=== PATIENT | female | born 1975 | race Caucasian/White ===

== ENCOUNTER 2020-01-29 15:08 | Emergency (ER) | payer MEDICAID ==
[~2020-01-29] VITALS: Ht 172.7 cm; Wt 47.6 kg
--- NOTE | 2020-01-29 15:13 | Emergency Room Report ---
History of Present Illness General Chief Complaint: Abdominal Pain Source: Patient Present Illness HPI 44-year-old female with history of alcohol abuse brought in by paramedics from streets due to multiple bouts of nonbloody emesis that started this morning. Patient also complains of epigastric abdominal pain. Complains of few bouts of nonbloody diarrhea. Denies chest pain, congestion, shortness of breath, fever and chills. Patient reports that she has been coughing for several years and there has been no changes to her cough. Denies urinary symptoms. Denies tobacco use, drug use, however reports that she drinks alcohol frequently. Reports that her symptoms started after she had a lot of alcohol at her friend's birthday alliance party. Patient appears to be stable with stable vital signs. Denies . Allergies: Coded Allergies: AZITHROMYCIN (Verified Allergy, Unknown, 01/29/20) ERYTHROMYCIN BASE (Verified Allergy, Unknown, 01/29/20) COVID-19 Screening Contact w/high risk pt: No Experienced COVID-19 symptoms?: No COVID-19 Testing performed [employer]: No Patient History Past Medical History: see triage record Past Surgical History: none Pertinent Family History: none Now: No Immunizations: UTD Reviewed Nursing Documentation: PMH: Agreed; PSxH: Agreed Nursing Documentation-PMH Past Medical History: No Stated History Review of Systems All Other Systems: negative except mentioned in HPI Physical Exam Vital Signs Date Time Temp Pulse Resp B/P (MAP) Pulse Ox O2 Delivery O2 Flow Rate FiO2 01/29/20 15:02 99.1 87 18 144/92 (109) 98 Room Air Sp02 EP Interpretation: reviewed, normal General Appearance: no apparent distress, alert, GCS 15, non-toxic Head: normocephalic, atraumatic Eyes: bilateral eye normal inspection, bilateral eye PERRL ENT: hearing grossly normal, normal pharynx, no angioedema, normal voice Neck: full range of motion, supple/symm/no masses Respiratory: chest non-tender, lungs clear, normal breath sounds, speaking full sentences Cardiovascular #1: regular rate, rhythm, no edema Cardiovascular #2: 2+ carotid (R), 2+ carotid (L), 2+ radial (R), 2+ radial (L), 2+ dorsalis pedis (R), 2+ dorsalis pedis (L) Gastrointestinal: normal bowel sounds, non tender, soft, no peritonitis, no bruit, non-distended, no guarding, no hernia, no pulsatile mass, no rebound Genitourinary: no CVA tenderness Musculoskeletal: back normal Neurologic: alert, motor strength/tone normal, oriented x3, sensory intact, responsive, speech normal Psychiatric: judgement/insight normal, memory normal, mood/affect normal, no suicidal/homicidal ideation Skin: no rash Lymphatic: no adenopathy Medical Decision Making PA Attestation All diagnoses and treatment plans were reviewed and discussed with my supervising physician Dr. Robertson Homeless Attestation The treating physician has assessed and agrees that patient is medically stable for outpatient disposition Diagnostic Impression: Primary Impression: Fatty liver Additional Impressions: UTI (urinary tract infection) Nausea & vomiting ER Course 44-year-old female with history of alcohol abuse brought in by paramedics from streets due to multiple bouts of nonbloody emesis that started this morning. Patient also complains of epigastric abdominal pain. Complains of few bouts of nonbloody diarrhea. Denies chest pain, congestion, shortness of breath, fever and chills. Patient reports that she has been coughing for several years and there has been no changes to her cough. Denies urinary symptoms. Denies tobacco use, drug use, however reports that she drinks alcohol frequently. Reports that her symptoms started after she had a lot of alcohol at her friend's birthday alliance party. Patient appears to be stable with stable vital signs. Denies . Ddx considered but are not limited to: appendicitis, cholecystis, gastritis, gastroenteritis, UTI, pyelonephritis, SBO, diverticulitis, pancreatitis Vital signs: are WNL, pt. is afebrile H&PE are most consistent with: Fatty liver, UTI, nausea vomiting most likely secondary to cannabis use ORDERS: abdominal CT, abdominal pain set, EKG, Zofran, Pepcid, dicyclomine, Keflex ED INTERVENTIONS: NS bolus, Zofran, Pepcid, Toradol DISCHARGE: At this time pt. is stable for d/c to home. Will provide printed patient care instructions, and any necessary prescriptions. Care plan and follow up instructions have been discussed with the patient prior to discharge. Advised patient to increase oral hydration, avoid cannabis use and alcohol intake, take medication as directed, keep a brat diet, if worsening symptoms return to the emergency room EKG Diagnostic Results Rate: tachycardiac Rhythm: other - slightly tachy ST Segments: no acute changes Other Impression No acute ST changes ASA given to the pt in ED: No Chest X-Ray Diagnostic Results Chest X-Ray Diagnostic Results : Chest X-Ray Ordered: Yes # of Views/Limited/Complete: 1 View Indication: Other EP Interpretation: Yes PA Xray: Interpretation reviewed, by supervising MD, and agrees with findings. Interpretation: no consolidation, no effusion, no pneumothorax Impression: No acute disease Electronically Signed by: Orquidea Krishnamurthy PA-C CT/MRI/US Diagnostic Results CT/MRI/US Diagnostic Results : Imaging Test Ordered: CT abdomen pelvis with contrast Impression Fatty liver, enteritis, otherwise within normal limits Comparison: none Findings: Lack of enteric contrast limits assessment of the GI tract. There are distal colonic diverticula. No evidence of diverticulitis. The appendix is normal. The distal esophagus, stomach, duodenum are unremarkable. There is equivocal mild wall thickening of the proximal jejunum. The mid to distal jejunum demonstrates fluid, some mural enhancement, and prominence of the vascular arcades. The ileum demonstrates a moderate amount of fluid. There is some free fluid in the pelvis, as well and is in the right lower quadrant mesentery. The liver is diffusely hypoattenuating. It is somewhat enlarged. The gallbladder, bile ducts, pancreas, spleen, adrenals, kidneys are unremarkable. There is suggestion of prior supracervical hysterectomy. No pelvic mass or adenopathy. The included lung bases are clear. The bones demonstrate degenerative spondylosis changes. Impression: Limited assessment of the GI tract, due to lack of enteric contrast administration Equivocal mild jejunal wall thickening and mildly prominent mid and distal small bowel fluid, could indicate enteritis Small amount of free intraperitoneal fluid, more than the expected amount of physiologic pelvic free fluid Enlarged fatty liver Incidental finding of degenerative spondylosis The CT scanner at [facility] is accredited by the [employer] and the scans are performed using protocols designed to limit radiation exposure to as low as reasonably achievable to attain images of sufficient resolution adequate for diagnostic evaluation. Last Vital Signs Date Time Temp Pulse Resp B/P (MAP) Pulse Ox O2 Delivery O2 Flow Rate FiO2 01/29/20 15:02 99.1 87 18 144/92 (109) 98 Room Air Disposition: HOME, SELF-CARE Condition: Stable Scripts Cephalexin* (KEFLEX*) 500 Mg Capsule 500 MG ORAL EVERY 12 HOURS for 7 Days, #14 CAP 0 Refills Prov: Orquidea Phelps 01/29/20 Dicyclomine Hcl* (DICYCLOMINE HCL*) 10 Mg Capsule 10 MG ORAL TID, #10 CAP Prov: Orquidea Phelps 01/29/20 Famotidine* (Pepcid 20mg tablet*) 20 Mg Tablet 20 MG ORAL DAILY for Gerd, #30 TAB 0 Refills Prov: Orquidea Phelps 01/29/20 Ondansetron (Zofran) 4 Mg Tablet 4 MG ORAL Q6H PRN for Nausea & Vomiting, #14 TAB Prov: Orquidea Phelps 01/29/20 Patient Instructions: Abdominal Pain, Adult, Fatty Liver, Urinary Tract Infection, [id number] Additional Instructions: Take medication as directed, avoid drinking alcohol, avoid cannabis use, if worsening symptom return to the emergency room Orquidea Phelps Jan 29, 2020 15:13
[2020-01-29] MEDS ORDERED: Ketorolac 30mg Inj IV ONE (15:15)
[2020-01-29 15:19] VITALS: BP 144/92
[2020-01-29] MEDS ORDERED: Omnipaque-300 100ml vial INJ PRN (15:30)
[2020-01-29 16:03] LABS: HEMOGLOBIN 14.5 G/DL (12.0-16.0); MEAN CORPUSCULAR VOLUME 105 FL (80-99); PLATELET COUNT 116 K/UL (150-450); RED CELL DISTRIBUTION WIDTH 10.8 % (11.6-14.8); WHITE BLOOD COUNT 6.4 K/UL (4.8-10.8)
[2020-01-29 16:12] LABS: BASOPHILS % (AUTO) 0.9 % (0.0-2.0); LYMPHOCYTES % (AUTO) 3.7 % (20.0-45.0); NEUTROPHILS % (AUTO) 90.4 % (45.0-75.0)
[2020-01-29 16:14] LABS: ANION GAP 14 mmol/L (5-15); BLOOD UREA NITROGEN 12 mg/dL (7-18); CALCIUM 8.5 MG/DL (8.5-10.1); CARBON DIOXIDE 24 MMOL/L (21-32); CHLORIDE 96 MMOL/L (98-107); CREATININE 0.7 MG/DL (0.55-1.30); POTASSIUM 3.4 MMOL/L (3.5-5.1); SODIUM 134 MMOL/L (136-145)
[2020-01-29 16:24] LABS: ALANINE AMINOTRANSFERASE 134 U/L (12-78); ALBUMIN/GLOBULIN RATIO 0.8 (1.0-2.7); ALKALINE PHOSPHATASE 162 U/L (46-116); ASPARTATE AMINO TRANSFERASE 325 U/L (15-37); BILIRUBIN,TOTAL 1.2 MG/DL (0.2-1.0)
[2020-01-29 16:27] LABS: BILIRUBIN,DIRECT 0.5 MG/DL (0.0-0.3)
--- NOTE | 2020-01-29 17:05 | Diagnostic Imaging Report ---
Indication: Cough Technique: One view of the chest Comparison: none Findings: Lungs and pleural spaces are clear. The heart size is normal. There is mild thoracic scoliotic deformity Impression: No acute process
--- NOTE | 2020-01-29 17:12 | Diagnostic Imaging Report ---
Clinical Indication: Abdominal pain, nausea, vomiting, diarrhea Technique: No oral contrast utilized, per emergency room physician request IV administration nonionic contrast. Venous phase spiral acquisition obtained through the abdomen and pelvis. Multiplanar reconstructions were generated. Total dose length product 151 mGycm. CTDIvol(s) 3 mGy. Dose reduction achieved using automated exposure control Comparison: none Findings: Lack of enteric contrast limits assessment of the GI tract. There are distal colonic diverticula. No evidence of diverticulitis. The appendix is normal. The distal esophagus, stomach, duodenum are unremarkable. There is equivocal mild wall thickening of the proximal jejunum. The mid to distal jejunum demonstrates fluid, some mural enhancement, and prominence of the vascular arcades. The ileum demonstrates a moderate amount of fluid. There is some free fluid in the pelvis, as well and is in the right lower quadrant mesentery. The liver is diffusely hypoattenuating. It is somewhat enlarged. The gallbladder, bile ducts, pancreas, spleen, adrenals, kidneys are unremarkable. There is suggestion of prior supracervical hysterectomy. No pelvic mass or adenopathy. The included lung bases are clear. The bones demonstrate degenerative spondylosis changes. Impression: Limited assessment of the GI tract, due to lack of enteric contrast administration Equivocal mild jejunal wall thickening and mildly prominent mid and distal small bowel fluid, could indicate enteritis Small amount of free intraperitoneal fluid, more than the expected amount of physiologic pelvic free fluid Enlarged fatty liver Incidental finding of degenerative spondylosis The CT scanner at [facility] is accredited by the [employer] and the scans are performed using protocols designed to limit radiation exposure to as low as reasonably achievable to attain images of sufficient resolution adequate for diagnostic evaluation.
[2020-01-29 17:18] LABS: APPEARANCE,URINE CLOUDY; BILIRUBIN, URINE 2+ (NEGATIVE); GLUCOSE, URINE (UA) NEGATIVE (NEGATIVE); KETONES,URINE 4+ (NEGATIVE); LEUKOCYTE ESTERASE ,URINE 1+ (NEGATIVE); NITRITE,URINE POSITIVE (NEGATIVE); PH,URINE 5 (4.5-8.0); PROTEIN,URINE 2+ (NEGATIVE); UROBILINOGEN,URINE 4 MG/DL (0.0-1.0)
[2020-01-29 17:22] LABS: COLOR,URINE YELLOW
[2020-01-29] MEDS ORDERED: ZOFRAN4 M1 ORAL (17:33)
[2020-01-29] MEDS ORDERED: CEPHALEXIN500 MG ORAL (17:33)
[2020-01-29] MEDS ORDERED: DICYCLOMINE HCL10 MG ORAL (17:33)
[2020-01-29] MEDS ORDERED: FAMOTIDINE20 MG ORAL (17:33)
[2020-01-29 17:40] VITALS: BP 144/92
--- NOTE | 2020-02-02 13:23 | Cardiology Report ---
APPROVED REPORT EKG Measurement Heart [id number] <Conclusion> Sinus tachycardia Possible Left atrial enlargement Left ventricular hypertrophy Abnormal ECG
== END 2020-01-29 17:40 | disposition home or self-care (01) ==
LOC: EDBD 15:08 → EMR 15:57
DX: K76.0 Fatty (change of) liver, not elsewhere classified (principal); N39.0 Urinary tract infection, site not specified; R10.13 Epigastric pain; R11.2 Nausea with vomiting, unspecified; Z88.1 Allergy status to other antibiotic agents
CPT/HCPCS: 36415; 71045; 74177; 80053; 80307; 81003; 81025; 82248; 83690; 84484; 85025; 85610; 85730; 87086; 87181; 93005; 96361; 96374; 96375; G0480; J1885; J2405; J7030; Q9965; S0028; Z7502; 99284